=== PATIENT | female | born 1960 | race African-American/Black ===

== ENCOUNTER 2021-09-23 12:58 | Outpatient (CLI) | payer BC ==
[2021-09-23 14:31] LABS: Hemoglobin 12.9 g/dL (12.0-15.5); Mean Corpuscular HGB CONC 30.3 g/dL (32.0-36.0); Mean Corpuscular Hemoglobin 25.7 pg (27.0-33.0); Mean Platelet Volume 10.5 fl (7.4-10.4); Platelet Count 328 10x3/uL (150-450); RBC Distribution Width 14.3 % (11.5-14.5); Red Blood Cell (RBC) Count 5.01 10x6/uL (3.90-5.03)
[2021-09-23 15:09] LABS: Anion Gap 18 mmol/L (10-20); BUN (Urea Nitrogen) 19 mg/dL (9.8-20.1); Calc. Creatinine Clearance 0 mL/min (70-130); Calcium 9.2 mg/dL (7.8-10.44); Carbon Dioxide 24 mmol/L (23-31); Chloride 103 mmol/L (98-107); Glucose 91 mg/dL (80-115); Potassium 3.7 mmol/L (3.5-5.1); Sodium 141 mmol/L (136-145)
== END 2021-09-23 12:59 | disposition home or self-care (01) ==
LOC: CSHLAB 12:58
PROVIDERS: ATTEND Podiatrist Foot & Ankle Surgery
DX: Z01.818 Encounter for other preprocedural examination (principal); M72.2 Plantar fascial fibromatosis
CPT/HCPCS: 80048; 85027; 93005; 93010

== ENCOUNTER 2021-11-17 09:28 | Day surgery (SDC) | payer BC ==
[2021-11-11 09:37] VITALS: BMI 32.5
[2021-11-17] MEDS ORDERED: Lidocaine 1% MPF 2 ML VIAL ONE (12:31)
[2021-11-17] MEDS ORDERED: Fentanyl 100 MCG/2 ML VIAL ONE (13:52)
[2021-11-17] MEDS ORDERED: PROPOFOL 20 ML ONE (13:52)
[2021-11-17] MEDS ORDERED: Lidocaine 2% PF 5 ML VIAL ONE (13:53)
[2021-11-17] MEDS ORDERED: Ondansetron PF 4 MG/2 ML Vial ONE (13:53)
[2021-11-17] MEDS ORDERED: Dexamethasone 4 mg/ml Vial ONE (13:53)
[2021-11-17] MEDS ORDERED: Ketorolac Tromethamine 30 MG/ML VIAL ONE (13:53)
[2021-11-17] MEDS ORDERED: Neomycin-Polymyxin 1 ML AMP ONE (13:55)
[2021-11-17] MEDS ORDERED: Bupivacaine PF 0.5% 30 ML VIAL ONE (13:55)
[2021-11-17] MEDS ORDERED: Clindamycin/D5W 900 MG in Premix Bag 1 BAG IVPB SCH (14:15)
== END 2021-11-17 15:20 | disposition home or self-care (01) ==
LOC: CSHSDC 09:28
PROVIDERS: ATTEND Podiatrist Foot & Ankle Surgery
PROC: 0JNR0ZZ Release Left Foot Subcutaneous Tissue and Fascia, Open Approach (ICD-10-PCS; principal; 2021-11-17)
DX: M72.2 Plantar fascial fibromatosis (principal); Z79.899 Other long term (current) drug therapy; M79.7 Fibromyalgia; I10 Essential (primary) hypertension; Z86.19 Personal history of other infectious and parasitic diseases; K21.9 Gastro-esophageal reflux disease without esophagitis; E78.00 Pure hypercholesterolemia, unspecified
CPT/HCPCS: J1100; J1885; J2001; J2405; J2704; J3010; J3490; S0020